=== PATIENT | female | born 1955 | race African-American/Black ===

== ENCOUNTER 2024-09-25 10:44 | Outpatient (AMB) | payer OTHER, SELFPAY ==
--- NOTE | 2024-09-25 11:05 | HO.NEPHOV_ITS ---
Vital Signs 09/25/24 11:10 Height 5 ft 6 in Weight 268 lb 4 oz BMI 43.3 BP 132/70 Blood Pressure Location Lt brachial Position Sitting Pulse 78 Pulse Source Pulse Oximeter Pulse Oximetry (%) 94 Oxygen Delivery Method Room Air Intake Visit Reasons: ENP: Primary Hypertension-LVM General Internal Medicine Doctor Required: No Accompanied by: Self / Same As Patient Allergies No Known Allergies Allergy (Verified 09/25/24 11:10) HPI Comments Details: I had the privilege of seeing Rachael in consultation for labile blood pressure. She is a 69 year old with H/O long standing hypertension, on multiple anti hypertensives with H/O labile serum potassium with diabetes claims to be compliant with her BP medications. She is not very strict with low sodium diet. She denies any renal dysfunction, uncontrolled thyroid disorders, high serum calcium or diagnosed YUVAL. She denies any proteinuria but has H/O HF with preserved EF. She denies CAD, CVA, PAD, carotid stenosis or known JEFF. She has H/O pedal edema. She has been started on Ozempic. She denies chest pain, SOB, PND or orthopnea. She denies taking excessive NSAID's. She has no headaches, visual disturbances or weakness. [facility] Medical History (Updated 09/25/24 @ 11:27 by Julian Maya MD) Anxiety state Type 2 diabetes mellitus with cataract Severe obesity with body mass index (BMI) of 35.0 to 39.9 with comorbidity Peripheral neuropathy Osteoarthritis of right hip Obstructive sleep apnea Microalbuminuria Hypopotassemia Hyperlipidemia Essential (primary) hypertension DM (diabetes mellitus), type 2 with neurological complications Cataracts, bilateral Bilateral lower extremity edema Umaña's esophagus (HFpEF) heart failure with preserved ejection fraction Surgical History H/O: hysterectomy H/O esophagogastroduodenoscopy H/O colonoscopy Family History Mother Diabetes Ovarian cancer Social History (Updated 09/25/24 @ 11:06 by Cindy Villareal MA) Alcohol intake: current Comment: Socially Patient Tobacco Use Status: Former Tobacco user Substance Use Type: Marijuana Review of Systems Const All systems reviewed & are unremarkable except as noted in HPI and below Physical Exam Vital Signs: Last Vital Signs Pulse 78 09/25/24 11:10 BP 132/70 09/25/24 11:10 Pulse Ox 94 09/25/24 11:10 Oxygen Delivery Method Room Air 09/25/24 11:10 BMI result Body Mass Index 43.3 Const General: comfortable and no acute distress Orientation/consciousness: patient oriented x3 HEENT Head: Yes normocephalic Mouth: Normal oral and palatal mucosa present Eyes EOM: EOMs intact bilaterally Neck Neck: Yes supple Resp Auscultation: clear to auscultation bilaterally Cardio Jugular venous distension: no JVD Rate: regular rate GI Palpation (GI): Soft to palpation Auscultation: normal bowel sounds General: Yes no CVA tenderness Back/Spine/Pelvis Back: no CVA tenderness Skin General skin exam: no rashes or lesions noted Neuro General: patient oriented x3 and moves all extremities Extrem General: Yes no pedal edema Results Reviewed Nephrology Results: No Data to Display Assessment & Plan Assessment & Plan (1) Essential (primary) hypertension: Code(s): I10 - Essential (primary) hypertension Category: Medical Plan Rachael has labile hypertension for some time with H/O labile potassium levels. Her BP is well controlled in the office today. I asked her to continue her current medications, increase activity and keep a low sodium diet. She needs to loose weight and has been initiated on Ozempic. I ordered renin, aldosterone, TSH and cortisol along with USS of kidneys and Doppler of renal arteries. Further management is pending evolving data. Answered all questions. Orders: Orders US renal doppler 1 Month I10 - Essential (primary) hypertension Renin 3 Months I10 - Essential (primary) hypertension Aldosterone 3 Months I10 - Essential (primary) hypertension TSH reflex Free T4 3 Months I10 - Essential (primary) hypertension US renal BI 1 Month I10 - Essential (primary) hypertension Cortisol Random 3 Months I10 - Essential (primary) hypertension Coding Level of Care Code New Pt Level 4 (36831) Diagnoses Essential (primary) hypertension I10
[2024-09-25 11:10] VITALS: BP 132/70; PULSE 78; O2SAT 94; BMI 43.3
--- OUTSIDE RECORDS SUMMARY | 2024-09-25 11:30 | XMS_ITS | Clinical Summary ---
Author Organization [facility] Address [address] [place] [address] Care Team Providers Care Patient Service Coordinator Name Role Phone Isaac Ontiveros MD Primary Care Provider Unavailab le Allergies No known active allergies Medications Medication Sig Dispensed Refills Start Date End Date Status amLODIPine (NORVASC) tablet 5 mg Take 1 tablet (5 mg total) by mouth daily. 0 08/30/2023 Active ammonium lactate (LAC-HYDRIN) 12 % lotion Apply to soles of feet daily. At night wear socks to bed 0 01/28/2021 Active aspirin 81 MG chewable tablet Chew 1 tablet (81 mg total) by mouth daily. 0 03/27/2012 Active atorvastatin (LIPITOR) tablet 40 mg Take 1 tablet (40 mg total) by mouth daily. 0 08/09/2023 Active carvedilol (COREG) 25 MG tablet 0 09/06/2023 Active clotrimazole (LOTRIMIN) 1 % cream Apply to skin and toenails daily for 12 weeks 0 10/07/2022 Active fluocinonide (LIDEX) 0.05 % cream Apply bid to affected areas 0 12/21/2021 Active fluticasone (FLONASE) 50 MCG/ACT nasal spray SHAKE LIQUID AND USE 2 SPRAYS IN EACH NOSTRIL DAILY 0 02/25/2021 Active furosemide (LASIX) 40 MG tablet 0 09/08/2023 Active gabapentin (NEURONTIN) 300 MG capsule 0 09/06/2023 Active loratadine (CLARITIN) 10 MG tablet Take 1 tablet (10 mg total) by mouth daily. 0 08/28/2023 Active losartan (COZAAR) 100 MG tablet 0 09/08/2023 Active meclizine (ANTIVERT) 25 MG tablet Take 1 tablet (25 mg total) by mouth. 0 12/22/2020 Active omeprazole (PriLOSEC) 40 MG capsule Take 1 capsule (40 mg total) by mouth daily. 0 08/30/2023 Active potassium chloride ER (K-DUR,KLOR-CON) tablet 20 mEq Take 1 tablet (20 mEq total) by mouth 2 (two) times a day. 0 08/30/2023 Active spironolactone (ALDACTONE) tablet 25 mg Take 1 tablet (25 mg total) by mouth daily. 0 07/12/2023 Active urea (CARMOL) 40 % CREA Apply 1 applicator topically. 0 07/07/2022 Active amitriptyline (ELAVIL) 10 MG tablet 2 po hs 60 tablet 5 12/19/2023 Active Social History Tobacco Use Types Packs/Day Years Used Date Smoking Tobacco: Never Assessed Sex and Gender Information Value Date Recorded Sex Assigned at Female 08/15/2023 1:29 PM EDT Gender Identity Not on file Sexual Orientation Not on file Job Start Date Occupation Industry Not on file Not on file Not on file Last Filed Vital Signs Vital Sign Reading Time Taken Comments Blood Pressure 177/48 02/29/2024 9:18 AM EDT Pulse 80 02/29/2024 9:18 AM EDT Temperature 35.9 ??C (96.7 ??F) 02/29/2024 9:18 AM ED T Respiratory Rate - - Oxygen Saturation 94% 12/19/2023 8:24 AM EDT Inhaled Oxygen Concentration - - Weight 123.8 kg (273 lb) 09/12/2023 9:14 AM EDT Height - - Body Mass Index - - Plan of Treatment Health Maintenance Due Date Last Done Comments Hepatitis C Screening 1955 Depression Screening 1965 Preventative Health Evaluation 08/06/1971 Colon Cancer Screening (Colonoscopy) 1998 Breast Cancer Screening (Mammogram) 08/06/2003 Shingrix-Zoster Vaccine (1 of 2) 08/06/2003 Fall Risk Assessment 2018 Osteoporosis Screening (DEXA Scan) 2018 COVID-19 Vaccine ( season) 2024 01/17/2022, 04/30/2021, 09/19/2020, Additional history exists Influenza Vaccine (#1) 2024 , 05/06/2020, 03/21/2018, Additional history exists DTap / Tdap / Td (2 - Td or Tdap) 02/01/2024 01/31/2014 RSV Adult > 60+ Yrs or (1 - 1-dose 75+ series) 2028 Pneumococcal Vaccine Completed 05/06/2020, 02/12/2016, 05/25/2005 Hepatitis B Vaccines Aged Out No long er eligible based on patient's age to complete this topic RSV Ped < 20 months Aged Out No longe r eligible based on patient's age to complete this topic Care Teams Patient Service Coordinator Relationship Specialty Start Date End Date Isaac Ontiveros MD PCP - General Internal Medicine 08/15/23
== END 2024-09-25 11:37 | disposition home or self-care (01) ==
PROVIDERS: PCP Internal Medicine; Referring Provider Internal Medicine; Visit Provider Internal Medicine Nephrology
DX: I10 Essential (primary) hypertension (principal)
CPT/HCPCS: 99204

== ENCOUNTER → 2024-09-25 10:44 | Outpatient (BNVA) | payer OTHER, SELFPAY | PROVIDERS: PCP Internal Medicine; Referring Provider Internal Medicine; Visit Provider Internal Medicine Nephrology | DX: I10 Essential (primary) hypertension (principal) | CPT/HCPCS: 99202 ==

== ENCOUNTER 2024-12-18 10:05 | Outpatient (REF) | payer OTHER, SELFPAY ==
--- OUTSIDE RECORDS SUMMARY | 2024-02-29 07:58 | XMS_ITS | Encounter Summary ---
Author Organization [facility] Address [place] [address] Care Team Providers Care Spool Cleaner Hand Name Role Phone Isaac Ontiveros MD Primary Care Provider [phone] Encounter Details Date Type Department Care Team (Late st Contact Info) Description 02/29/2024 7:58 AM EDT Hospital Encounter TH HISTORIC ENCOUNTERS EASTERN CONVERSION ONLY Liz Shelton PA [address] [place] [address] Social History Tobacco Use Types Packs/Day Years Used Date Smoking Tobacco: Former Cigarettes Q uit: 05/02/2023 Smokeless Tobacco: Former Alcohol Use Standard Drinks/Week Comments Yes 0 (1 standard drink = 0.6 oz pur e alcohol) occasionally Housing Instability Answer Date Recorde d Are you worried that in the next 2 months you may not have stable housing? No 09/03/2024 Food Access & Nutrition Answer Date Rec orded Do you have access to a vari ety of food including fruits and vegetables? Yes 09/03/2024 Financial Risk Answer Date Recorded How hard is it for you to pa y for the very basics like food, housing, medical care, and air conditioning / heating? Not very hard 09/03/2024 Food Risk Answer Date Recorded Within the past 12 months we worried whether our food would run out before we got money to buy more. Never true 09/03/2024 Within the past 12 months th e food we bought just didn't last and we didn't have money to get more. Never true 09/03/2024 Living Situation Answer Date Recorded What is your living situation? 0 09/03/2024 Comments No Sex and Gender Information Value Date Recorded Sex Assigned at Not on file Legal Sex Female 12:10 PM EST Gender Identity Not on file Sexual Orientation Not on file documented as of this encounter Last Filed Vital Signs Vital Sign Reading Time Taken Comments Blood Pressure 177/48 02/29/2024 9:18 AM EDT Sit ting Left arm Pulse 80 02/29/2024 9:18 AM EDT Temperature - - Respiratory Rate - - Oxygen Saturation - - Inhaled Oxygen Concentration - - Weight 124 kg (273 lb) 09/12/2023 9:14 AM EDT Height - - Body Mass Index 42.76 08/01/2023 9:44 AM EDT documented in this encounter Progress Notes * JUDIE Fuentes - 02/29/2024 8:00 AM EDT HPI: Rachael Can is a 68 y.o. year old female referred to our center by Isaac Ontiveros MD for evaluation and management of headaches Interval history: Patient returns for follow-up visit for headache management. She continues 10 mg of amitriptyline since last visit (never increased to 20 mg as we discussed). Some weeks she does not have a headache at all. Overall severity has improved when she does get them.She tolerates amitriptyline well without SE. She notes that she has been sleeping well at night. She continues CPAP regularly. Last visit history: She has been taking amitriptyline 10 mg hs and she has noticed a reduction in headache frequency. Frequency was daily, now about 4 per week. She has been sleeping well at night. Denies any adverse effects with amitriptyline. No past medical history on file. Current Outpatient Medications Medication Sig Dispense Refill ??? amitriptyline (ELAVIL) 10 MG tablet 2 po hs 60 tablet 5 ??? amLODIPine (NORVASC) tablet 5 mg Take 1 tablet (5 mg total) by mouth daily. ??? ammonium lactate (LAC-HYDRIN) 12 % lotion Apply to soles of feet daily. At night wear socks to bed ??? aspirin 81 MG chewable tablet Chew 1 tablet (81 mg total) by mouth daily. ??? atorvastatin (LIPITOR) tablet 40 mg Take 1 tablet (40 mg total) by mouth daily. ??? carvedilol (COREG) 25 MG tablet ??? clotrimazole (LOTRIMIN) 1 % cream Apply to skin and toenails daily for 12 weeks ??? fluocinonide (LIDEX) 0.05 % cream Apply bid to affected areas ??? fluticasone (FLONASE) 50 MCG/ACT nasal spray SHAKE LIQUID AND USE 2 SPRAYS IN EACH NOSTRIL DAILY ??? furosemide (LASIX) 40 MG tablet ??? gabapentin (NEURONTIN) 300 MG capsule ??? loratadine (CLARITIN) 10 MG tablet Take 1 tablet (10 mg total) by mouth daily. ??? losartan (COZAAR) 100 MG tablet ??? meclizine (ANTIVERT) 25 MG tablet Take 1 tablet (25 mg total) by mouth. ??? omeprazole (PriLOSEC) 40 MG capsule Take 1 capsule (40 mg total) by mouth daily. ??? potassium chloride ER (K-DUR,KLOR-CON) tablet 20 mEq Take 1 tablet (20 mEq total) by mouth 2 (two) times a day. ??? spironolactone (ALDACTONE) tablet 25 mg Take 1 tablet (25 mg total) by mouth daily. ??? urea (CARMOL) 40 % CREA Apply 1 applicator topically. No current facility-administered medications for this visit. No Known Allergies Social history: Tobacco: former smoker , stopped 04/2024 Alcohol social Drug use: smoke Carol Lives with her daughter , used work in [employer] Family history: There is no significant family history of multiple sclerosis, rheumatoid arthritis,type 1 diabetes, lupus, or other autoimmune diseases. Neurologic Exam: There were no vitals taken for this visit. MS: AOx3 CN: perrla, , V1-3 intact to LT, face symmetric, bilateral SCM/trapezius 5/5, tongue/uvula/palate midline Motor: 5/5 in all extremities right lower extremity 4/5 limited by hip pain Sensation: Intact to light touch, temperature, and decreased vibration in all extremities distally more on the lower extremity Reflexes: 2+ in bilateral biceps and patellae Cerebellar: FNF intact bilaterally, FFM intact bilaterally, EAMON intact bilaterally, tandem gait normal, romberg negative Labs: 09/12/2023: CRP, ESR normal Imaging: No images were reviewed by me. MRI brain 10/04/2023: Unremarkable A/P: Rachael Can is a 68 y.o. year old female with chronic headache treated with amitriptyline 10 mg at bedtime. She has done very well with this dose and headache frequency has now been reduced to 4-5 monthly. This will be continued. -continue amitriptyline 10 mg at bedtime -Continue use of CPAP -Patient agrees to contact the office with any change in symptoms or new concerns prior to next office visit. -RTC in 6 months for follow up or sooner as needed with any concern The patient and I discussed the clinical picture during today's appointment. Additional time was spent prior to the actual appointment reviewing records, lab values and imaging results and preparing documentation for today's visit. There was also time spent following the in person visit documenting, arranging for further diagnostic testing and follow-up appointments. The entire time spent in thisprocess was greater than 30 minutes. The majority of the actual qhaa-[id number] visit was spent counseling the patient with respect to the current neurological picture. Liz Shelton PA-C documented in this encounter Plan of Treatment Upcoming Encounters Date Type Department Care Team (Late st Contact Info) Description 01/02/2025 8:30 AM EDT Office Visit Endocrinology [address] [phone] Nazia Velasquez PA [address] [place] [address] 01/08/2025 8:30 AM EDT Office Visit Internal Medicine - [place] [address] [phone] Isaac Ontiveros MD [address] [address] 01/09/2025 8:15 AM EDT Office Visit Orthopedic Surgery - [place] [address] [phone] Kendell Patton DPM [address] [address] 05/03/2025 8:15 AM EST Office Visit Pulmonolgy - [place] [address] [phone] Dacia Moya MD [address] [id number] documented as of this encounter Visit Diagnoses Not on filedocumented in this encounter Care Teams Spool Cleaner Hand Relationship Specialty Start Date End Date Isaac Ontiveros MD [address] [address] PCP - General 08/30/22 documented as of this encounter
--- OUTSIDE RECORDS SUMMARY | 2024-12-18 11:20 | XMS_ITS | Clinical Summary ---
Author Organization [facility] Address [address] [place] [address] Care Team Providers Care Pmo Project Manager Name Role Phone Isaac Ontiveros MD Primary [...] 80 02/29/2024 9:18 AM EDT Temperature 35.9 C (96.7 F) 02/29/2024 9:18 AM EDT Respiratory Rate - - Oxygen Saturation 94% [...] 2024 01/17/2022, 04/30/2021, 09/19/2020, Additional history exists DTap / Tdap / Td (2 - Td or Tdap) 02/01/2024 01/31/2014 Influenza Vaccine (#1) 2024 , 05/06/2020, 03/21/2018, Additional history exists RSV Adult > 60+ Yrs or (1 - 1-dose 75+ series) 2028 Pneumococcal Vaccine Completed 05/06/2020, 02/12/2016, 05/25/2005 Hepatitis B Vaccines Aged Out No long er eligible based on patient's age to complete this topic RSV Ped < 20 months Aged Out No longe r eligible based on patient's age to complete this topic Care Teams Pmo Project Manager Relationship Specialty Start Date End Date Isaac Ontiveros MD PCP - General Internal Medicine 08/15/23
--- OUTSIDE RECORDS SUMMARY | 2024-12-18 11:20 | XMS_ITS ---
Author Name [facility] Organization Unknown History of Medication Use Medication Directions Dispensed Refills Start Date End Date Stat us carvedilol (COREG) 25 MG tablet 09/06/2023 active omeprazole (PriLOSEC) 40 MG capsule Take 1 capsule (40 mg total) by mouth daily. 08/30/2023 active spironolactone (ALDACTONE) tablet 25 mg Take 1 tablet (25 mg total) by mouth daily. 07/12/2023 active urea (CARMOL) 40 % CREA Apply 1 applicator topically. 07/07/2022 active fluocinonide (LIDEX) 0.05 % cream Apply bid to affected areas 12/21/2021 active meclizine (ANTIVERT) 25 MG tablet Take 1 tablet (25 mg total) by mouth. 12/22/2020 active Problems Problem Status Onset Date Problem Type Date of Resoluti on Source Vertigo active EncounterDiagnosisAct CTTHNEMG Other headache syndrome active EncounterDiagnosisAct CTTHNE MG
== END 2024-12-18 10:06 | disposition home or self-care (01) ==
LOC: HO.HKASLDS 10:05
PROVIDERS: Visit Provider Internal Medicine Nephrology
DX: I10 Essential (primary) hypertension (principal)
CPT/HCPCS: 36415; 82088; 82533; 84244; 84443